=== PATIENT | male | born 1945 | race Caucasian/White ===

== ENCOUNTER 2022-03-12 23:11 | Emergency (ER) | payer OTHER, MEDICARE, SELFPAY ==
[2022-03-12 23:13] VITALS: BP 139/91; PULSE 91; RESP 15; TEMP 36.7; O2SAT 96; BMI 25.5
[2022-03-13] MEDS: Triamcinolone Acetonide 40 MG/ML Vial IM (00:06)
[2022-03-13] MEDS: Ketorolac 30 MG/ML Syringe IM (00:06)
--- NOTE | 2022-03-13 00:41 | EX.ED.DYSGE1 ---
HPI History of Present Illness Chief Complaint: Lower Extremity Injury Narrative Narrative: Reports with worsening right hip pain rating down lateral aspect of leg since 10 PM. Worker's Comp. injury 5 days ago getting off a truck. He saw the [facility] twice get x-rays negative he started physical therapy Sunday. He was put on Flexeril, has been using ibuprofen last dose 6 hours ago. He also saw his chiropractor today for ultrasound treatment he states it was more controlled however after waking from a nap things got worse. Using a cane to ambulate. Denies any current back pain. No loss of bowel or bladder control. No history of similar in the past. Denies history of gastric ulcers or kidney injury. Prior similar symptoms: Yes PFSH [facility] Medical History Basal cell carcinoma of lip History of prostate cancer Non-rheumatic mitral regurgitation SOB (shortness of breath) TIA (transient ischemic attack) Varicose veins of left lower extremity Home Medications aspirin 81 mg tablet,delayed release 81 mg PO DAILY 11/30/20 [History Last Taken 03/11/22] simvastatin 20 mg tablet 10 mg PO QHS tab 12/02/20 [History Last Taken 03/11/22] diazepam 5 mg PO Q8 PRN 3 Days #10 tab 03/12/22 [Rx Last Taken Unknown] Allergy/AdvReac Type Severity Reaction Status Date / Time grass pollen Allergy Itching Verified 03/12/22 23:25 Family History Father Myocardial infarction, Onset Age: 48 Heart disease Mother Hypertension Surgical History History of appendectomy Social History Smoking Status: Never smoker alcohol intake: current details: 2-3 per week substance use type: does not use caffeine: Yes (1 drink per day) ROS ROS ED Constitutional Constitutional ED: Denies chills, fever(s) or sweats Eyes Eyes: Denies change in vision ENT ENT ED: Denies dysphagia or sore throat Cardiovascular Cardiovascular: Denies chest pain, leg edema, palpitations or racing heartbeat Respiratory/Chest Respiratory/Chest: Denies cough, dyspnea or dyspnea on exertion Gastrointestinal Gastrointestinal: Denies abdominal pain, diarrhea, nausea or vomiting Genitourinary Genitourinary ED: Denies dysuria, hematuria or urinary frequency Musculoskeletal Musculoskeletal: Reports other Details: Right hip pain rating down the leg ; Denies back pain, extremity pain or neck pain Integumentary Denies rash or wounds Neurologic Neurologic: Denies headache(s), paresthesias or weakness EXAM Physical Exam Const Vital Signs: 03/12/22 23:13 Temperature 98.1 F Temperature Source Temporal Pulse Rate 91 Respiratory Rate 15 Blood Pressure 139/91 H Blood Pressure Mean 107 Pulse Ox 96 Oxygen Delivery Method Room Air Positive well nourished and well developed General Appearance ED: well developed and NAD HEENT Reports moist mucous membranes normocephalic and atraumatic Eyes PERRL, EOMs intact bilaterally and conjunctivae normal General Eye ED: Yes normal appearance of both eyes Neck no lymphadenopathy and supple General: Negative for tenderness Chest Wall Chest: Negative for tenderness Resp normal respiratory effort and normal air movement Effort and Inspection: symmetric chest movement; Negative for respiratory distress Cardio regular rate, regular rhythm and no murmurs Peripheral Pulses: pulses 2+ throughout GI normal to inspection, nondistended, normoactive bowel sounds and non-tender Palpation: Negative for guarding or rebound tenderness present Back/Spine no CVA tenderness and no thoracic nor lumbar tenderness Extremity normal to inspection Extremity Narrative: Negative logroll left lower extremity straight leg test negative. Is able to stand and ambulate with his cane. General Extremety ED: Negative for edema or tenderness General Extremity: Negative for edema Neuro oriented x3 and no sensory deficits noted Sensorium / Orientation: awake and alert Skin no rashes or lesions noted and no wounds MDM MDM MDM Narrative Medical decision making narrative: Patient vital signs stable history exam concerns for possible sciatica symptoms with radiation down his leg without back pain. He reported normal hip x-ray there is been no new injuries no indication for reimaging at this time. He is not a diabetic. Discussed additional symptomatic treatment with steroids Kenalog injection was given. He is also given Toradol. Wrote him prescription with meds to go for Valium for muscle relaxer he will not take his Flexeril while on this. He will follow-up with [facility]. All questions were answered. Discharge Plan Triage Chief Complaint: Lower Extremity Injury ED Provider: Jignesh Garcia Dx/Rx/DC Orders Clinical Impression: Right sided sciatica Instructions: ED Sciatica Prescriptions: New diazepam [diazepam] 5 MG tablet 5 mg PO Q8 PRN (Reason: Muscle Spasm or pain) 3 Days Qty: 10 RF: 0 No Action aspirin [Adult Low Dose Aspirin] 81 mg tablet,delayed release (DR/EC) 81 mg PO DAILY RF: 0 simvastatin 20 mg tablet 10 mg PO QHS RF: 0 Primary Care Provider: Rob Watkins Referrals: Rob Watkins MD [Primary Care Provider] - [facility] - 1 Day Disposition Disposition: Home, Self Care Discharge Date/Time: 03/13/22 01:16
== END 2022-03-13 01:16 | disposition home or self-care (01) ==
PROVIDERS: Emergency Provider Emergency Medicine; PCP Family Medicine; Visit Provider Emergency Medicine
DX: M54.31 Sciatica, right side (principal); Z79.82 Long term (current) use of aspirin; Z86.73 Personal history of transient ischemic attack (TIA), and cerebral infarction without residual deficits
CPT/HCPCS: 96372; 99282

== ENCOUNTER 2022-03-15 03:38 | Emergency (ER) | payer OTHER, BC, MEDICARE, SELFPAY ==
[2022-03-15 03:40] VITALS: BP 178/100; PULSE 74; RESP 18; TEMP 36; O2SAT 97; BMI 25.8
[2022-03-15] MEDS: HYDROmorphone 1 MG/ML Syringe 2 MG IM (04:14)
[2022-03-15] MEDS: proMETHazine 25 MG/ML Syringe IM (04:18)
--- NOTE | 2022-03-15 05:04 | EX.ED.DYSGE1 ---
HPI History of Present Illness Chief Complaint: Lower Extremity Injury Narrative Narrative: Patient is a 77-year-old male who states that about 7 to 8 days ago he stepped off a loading ramp approximately 2 feet and landed awkwardly on his right foot causing him to twist his right leg. He denies falling at that time and states he was able to drive and finish out his job. However later that evening he began having increased pain to the medial aspect of the right hip. He went and had x-rays obtained by workmen's comp and was placed on Flexeril. He was not having any improvement so he came to the ER and was transitioned to Valium and also given steroid. Patient then saw orthopedics yesterday and had an outpatient MRI. He states he is taking the medication as directed but is having persistent pain. He denies any new injury and he denies any fevers chills or discoloration but with the persistent pain presents for evaluation [facility] Medical History Basal cell carcinoma of lip History of prostate cancer Non-rheumatic mitral regurgitation SOB (shortness of breath) TIA (transient ischemic attack) Varicose veins of left lower extremity Home Medications aspirin 81 mg tablet,delayed release 81 mg PO DAILY 11/30/20 [History Last Taken 03/11/22] simvastatin 20 mg tablet 10 mg PO QHS tab 12/02/20 [History Last Taken 03/11/22] diazepam 5 mg PO Q8 PRN 3 Days #10 tab 03/12/22 [Rx Last Taken Unknown] oxycodone-acetaminophen [Endocet] 1 tab PO Q6H PRN 3 Days #12 tab 03/15/22 [Rx Last Taken Unknown] Allergy/AdvReac Type Severity Reaction Status Date / Time grass pollen Allergy Itching Verified 03/15/22 03:44 Family History Father Myocardial infarction, Onset Age: 48 Heart disease Mother Hypertension Surgical History History of appendectomy Social History Smoking Status: Never smoker alcohol intake: current details: 2-3 per week substance use type: does not use caffeine: Yes (1 drink per day) ROS ROS ED Constitutional Constitutional ED: Denies chills or fever(s) ENT ENT ED: Denies sore throat Cardiovascular Cardiovascular: Denies chest pain Respiratory/Chest Respiratory/Chest: Denies cough or dyspnea Gastrointestinal Gastrointestinal: Denies abdominal pain, diarrhea, nausea or vomiting Genitourinary Genitourinary ED: Denies dysuria Musculoskeletal Musculoskeletal: Reports arthralgias; Denies back pain or myalgias Integumentary Denies rash Neurologic Neurologic: Denies headache(s), paresthesias or weakness Hematologic/Lymphatic Hematologic/Lymphatic: Denies easy bleeding or easy bruising EXAM Physical Exam Const Vital Signs: 03/15/22 03:40 Temperature 96.8 F L Temperature Source Temporal Pulse Rate 74 Respiratory Rate 18 Blood Pressure 178/100 H Blood Pressure Mean 126 Pulse Ox 97 Oxygen Delivery Method Room Air Positive well nourished and well developed General Appearance ED: well developed Eyes PERRL and EOMs intact bilaterally Neck supple Resp normal respiratory effort and clear to auscultation bilaterally Cardio regular rate and regular rhythm Back/Spine Back/Spine Narrative: No bony deformity or step-off of the thoracic or lumbar spine no midline pain with palpation. No saddle anesthesia. Negative straight leg raise. No clonus or Babinski. Patellar reflexes are plus 1 out of 4 bilaterally. Extremity Extremity Narrative: Right lower extremity is neurovascularly intact. There is no obvious bony deformity or joint effusion. No overlying erythema or warmth or secondary changes to suggest infection. There is pain to palpation along the right inguinal muscles and this worsens with hip flexion as well as external rotation and abduction. Neuro oriented x3 and CN's II-XII intact bilaterally Sensorium / Orientation: alert Psych mental status grossly normal Skin no rashes or lesions noted MDM MDM MDM Narrative Medical decision making narrative: Patient presented to the ER afebrile but hypertensive most likely secondary to pain. He is already had x-rays obtained on an outpatient basis as well as an MRI. The MRI was of his right hip and as he does not have radicular symptoms or signs of neuro claudication do not feel there is need for imaging study of his back. I feel that the patient has not had great improvement with Valium and steroids because the area is not inflamed or spasm but most likely torn. Therefore he was given IM Phenergan and Dilaudid and did have improvement of the pain where he was able to sleep. At this time as I do not have changes to suggest septic joint or further trauma I do not feel there is need for further work-up. Patient will be placed on Percocet for home that he can take on top of his previous medication while he is waiting for the official results of his MRI Discharge Plan Triage Chief Complaint: Lower Extremity Injury ED Provider: Jeremie Garrison Dx/Rx/DC Orders Clinical Impression: Acute pain of left hip Instructions: How Your Hip Works, ED Hip Strain Prescriptions: New oxycodone-acetaminophen [Endocet] 5-325 mg tablet 1 tab PO Q6H PRN (Reason: pain) 3 Days Qty: 12 RF: 0 No Action aspirin [Adult Low Dose Aspirin] 81 mg tablet,delayed release (DR/EC) 81 mg PO DAILY RF: 0 simvastatin 20 mg tablet 10 mg PO QHS RF: 0 diazepam [diazepam] 5 MG tablet 5 mg PO Q8 PRN (Reason: Muscle Spasm or pain) 3 Days Qty: 10 RF: 0 Primary Care Provider: Rob Watkins Referrals: Rob Watkins MD [Primary Care Provider] - Activity Restrictions/Additional Instructions: Please add the Percocet to your Valium and steroids as this will help control pain further as I feel the majority of your pain is related to a muscle or ligamentous tear. Please continue to follow-up with orthopedics if needed and return to the ER should you have any further concerns Disposition Disposition: Home, Self Care
[2022-03-15 05:38] VITALS: BP 164/60; PULSE 78; RESP 16
--- NOTE | 2022-03-21 11:22 | CM.ED ---
ER RNCM DC F/u Call: ED Visit: 03/15/2022 for LE pain s/p stepping off loading ramp and twisting right leg. F/u with Ortho and had MRI. DC with Endocet. Called patient's listed cell number with no answer. VM did not identify correct patient identity and therefore no VM was left by this sba underwriter at this time. Kaylene Coats RNCM
== END 2022-03-15 05:40 | disposition home or self-care (01) ==
PROVIDERS: Emergency Provider Emergency Medicine; PCP Family Medicine; Visit Provider Emergency Medicine
DX: M25.552 Pain in left hip (principal); Z79.82 Long term (current) use of aspirin; Z86.73 Personal history of transient ischemic attack (TIA), and cerebral infarction without residual deficits
CPT/HCPCS: 96372; 99282